=== PATIENT | female | born 1985 | race Hispanic/Latino ===

== ENCOUNTER 2018-01-22 12:16 | Emergency (ER) | payer OTHER ==
[2018-01-22 12:27] VITALS: O2SAT 100
[2018-01-22] MEDS ORDERED: Sodium Chloride 0.9% 1,000 ML IV STA (12:45)
[2018-01-22 13:17] LABS: BASO % 0.2 % (0.0-2.0); EOS % 0.2 % (0.0-4.0); HEMOGLOBIN 14.5 g/dL (12.0-16.0); LYMPH # 1.3 K/uL (1.0-4.3); LYMPH % 8.6 % (20.0-40.0); MEAN CELL VOLUME 89.7 fl (81.0-99.0); MEAN CORPUSCULAR HEMOGLOBIN 29.9 pg (27.0-31.0); MEAN CORPUSCULAR HGB CONC 33.3 g/dL (33.0-37.0); MEAN PLATELET VOLUME 8.8 fl (7.2-11.7); MONO # 0.5 K/uL (0.0-0.8); MONO % 3.4 % (0.0-10.0); NEUT # 12.8 K/uL (1.8-7.0); NEUT % 87.6 % (50.0-75.0); PLATELET COUNT 256 K/uL (130-400); RBC 4.87 Mil/uL (3.80-5.20); RED CELL DISTRIBUTION WIDTH 13.8 % (11.5-14.5); WHITE BLOOD COUNT 14.6 K/uL (4.8-10.8)
[2018-01-22 13:25] LABS: BLOOD UREA NITROGEN 14 mg/dl (7-17); GFR NON-AFRICAN AMERICAN > 60; LIPASE 89 U/L (23-300)
--- NOTE | 2018-01-22 13:36 | ED PDOC ---
HPI: Back Time Seen by Provider: 01/22/18 12:40 Chief Complaint (Nursing): Back Pain Chief Complaint (Provider): Left Flank Pain History Per: Patient History/Exam Limitations: no limitations Onset/Duration Of Symptoms: Hrs Current Symptoms Are (Timing): Still Present Quality Of Discomfort: "Pain" Additional Complaint(s): 32 year old female who is 5 months presents to the ER for left-side intermittent flank pain onset today. She states she is breast-feeding. Also reports the flank pain is associated with nausea and mild blood in urine. Denies fever, chills or dysuria. Past Medical History Reviewed: Historical Data, Nursing Documentation, Vital Signs Vital Signs: Last Vital Signs Temp 97.4 F L 01/22/18 12:24 Pulse 60 01/22/18 12:24 Resp 16 01/22/18 12:24 BP 125/80 01/22/18 12:24 Pulse Ox 100 01/22/18 12:24 - Medical History PMH: No Chronic Diseases - Surgical History Surgical History: - Family History Family History: States: Unknown Family Hx - Social History Current smoker - smoking cessation education provided: No Alcohol: None Drugs: Denies - Home Medications Home Medications: Ambulatory Orders Medication Instructions Recorded Cefuroxime Axetil [Cefuroxime] 500 mg PO BID #14 tablet 01/22/18 Ibuprofen [Motrin] 600 mg PO Q8 PRN #21 tab 01/22/18 Ondansetron ODT [Zofran ODT] 4 mg PO Q8 PRN #10 odt 01/22/18 oxyCODONE/Acetaminophen [Percocet 1 ea PO Q6 PRN #12 tab 01/22/18 5/325 mg Tab] - Allergies Allergies/Adverse Reactions: Allergies Allergy/AdvReac Type Severity Reaction Status Date / Time No Known Allergies Allergy Verified 01/22/18 12:24 Review of Systems ROS Statement: Except As Marked, All Systems Reviewed And Found Negative Constitutional: Negative for: Fever, Chills Gastrointestinal: Positive for: Nausea Genitourinary Female: Positive for: Hematuria. Negative for: Dysuria Musculoskeletal: Positive for: Back Pain Physical Exam - Reviewed Nursing Documentation Reviewed: Yes Vital Signs Reviewed: Yes - Physical Exam Appears: Positive for: Non-toxic, No Acute Distress Head Exam: Positive for: ATRAUMATIC, NORMAL INSPECTION, NORMOCEPHALIC Skin: Positive for: Normal Color, Warm, Dry Gastrointestinal/Abdominal: Negative for: Normal Exam (vomiting in ER) Back: Negative for: Normal Inspection (left flank pain) Neurologic/Psych: Positive for: Alert, Oriented (x3). Negative for: Motor/Sensory Deficits - Laboratory Results Result Diagrams: 01/22/18 13:00 01/22/18 13:50 Urine POC: Negative Urine dip results: Positive for: Blood - ECG O2 Sat by Pulse Oximetry: 100 (RA) Pulse Ox Interpretation: Normal - Progress ED Course And Treament: CT OF ABD/PELVIS: IMPRESSION: 1. A 5.8 mm calculus obstructs the distal left ureter a few cm proximal left ureteral junction region. No additional radiodense urolithiasis bilaterally. [id number] left hydroureteronephrosis results. No right hydronephrosis. 2. Otherwise nonacute unenhanced abdomen pelvis CT exam. NS 1 LITER WIDE OPEN TORADOL 15 MG IV ZOFRAN 4 MG IV MORPHINE 4 MG IV X 1 DOSE D/W DR. STAHL. ROCEPHIN 1 GM IV/KUB/ IN ED REQUESTED BY HIM WILL D/C WITH CEFITIN/FLOMAX/MOTRIN/PERCOCET. PATIENT REFUSED KUB AT THIS TIME. Medical Decision Making Medical Decision Making: Time: 1245 Initial Plan: Abdomen & Pelvis CT CMP Lipase ED Urine ED Urine Dipstick CBC w/ Differential Normal Saline 1000 mls/hr Toradol 15mg Zofran 4g Urine Culture Urinalysis Reevaluation Urine was negative. Urine Dipstick was positive for blood. Scribe Attestation: Documented by Maurice Coleman, acting as a scribe for Fabiano Chase PA-C Provider Scribe Attestation: All medical record entries made by the Scribe were at my direction and personally dictated by me. I have reviewed the chart and agree that the record accurately reflects my personal performance of the history, physical exam, medical decision making, and the department course for this patient. I have also personally directed, reviewed, and agree with the discharge instructions and disposition. Disposition - Clinical Impression Clinical Impression: Renal colic on left side - Patient ED Disposition Is Patient to be Admitted: No - Disposition Referrals: Alan Chew MD [Staff Provider] - Disposition: Routine/Home Disposition Time: 16:07 Condition: FAIR Prescriptions: Cefuroxime Axetil [Cefuroxime] 500 mg PO BID #14 tablet Ibuprofen [Motrin] 600 mg PO Q8 PRN #21 tab PRN Reason: Pain, Moderate (4-7) Ondansetron ODT [Zofran ODT] 4 mg PO Q8 PRN #10 odt PRN Reason: Nausea/Vomiting oxyCODONE/Acetaminophen [Percocet 5/325 mg Tab] 1 ea PO Q6 PRN #12 tab PRN Reason: Pain, Severe (8-10) Instructions: Renal Colic (DC)
[2018-01-22] MEDS ORDERED: Morphine 4 MG/ML VIAL ONE (14:14)
--- NOTE | 2018-01-22 14:15 | CT ---
Date of service: 01/22/2018 PROCEDURE: CT Abdomen and Pelvis without intravenous contrast HISTORY: r/o kidney stone left flank COMPARISON: None. TECHNIQUE: Helical CT of the abdomen and pelvis was performed without oral or intravenous contrast as per referring physician request. Coronal and sagittal reformats were generated. Contrast dose: None Radiation dose: Total exam DLP = 321.76 mGy-cm. This CT exam was performed using one or more of the following dose reduction techniques: Automated exposure control, adjustment of the mA and/or kV according to patient size, and/or use of iterative reconstruction technique. FINDINGS: LOWER THORAX: Unremarkable. LIVER: Unremarkable. No gross lesion or ductal dilatation. GALLBLADDER AND BILE DUCTS: Unremarkable. PANCREAS: Unremarkable. No gross lesion or ductal dilatation. SPLEEN: Unremarkable. ADRENALS: Unremarkable. No mass. KIDNEYS AND URETERS: There [id number] left hydroureteronephrosis caused by a 5.8 x 3.8 x 5.5 mm calculus obstructing the distal left ureter close to the region of the left ureter vessel junction but clearly not at the left UVJ [id number] perinephric and periureteral reactive changes are identified at the left with none on the right. No right hydronephrosis or radiodense urolithiasis. No radiodense intrarenal calculus left kidney. The urinary bladder is completely decompressed and unremarkable appearing. VASCULATURE: Unremarkable. No aortic aneurysm. No aortic atherosclerotic calcification or mural plaque present. BOWEL: Unremarkable. No obstruction. No gross mural thickening. APPENDIX: Not identified. PERITONEUM: Unremarkable. No free fluid. No free air. LYMPH NODES: Unremarkable. No enlarged lymph nodes. BLADDER: Please see kidneys and ureter section above. REPRODUCTIVE: Unremarkable. BONES: No acute fracture. OTHER FINDINGS: None. IMPRESSION: 1. A 5.8 mm calculus obstructs the distal left ureter a few cm proximal left ureteral junction region. No additional radiodense urolithiasis bilaterally. [id number] left hydroureteronephrosis results. No right hydronephrosis. 2. Otherwise nonacute unenhanced abdomen pelvis CT exam.
[2018-01-22 14:19] LABS: ALB/GLOB RATIO 1.3 (1.0-2.1); ALBUMIN 4.7 g/dL (3.5-5.0); ALT/SGPT 25 U/L (9-52); AST/SGOT 24 U/L (14-36)
[2018-01-22 14:19] LABS: BANDS 2 % (0-2); LYMPHOCYTE 12 % (20-50); MONOCYTE 3 % (0-10); NEUTROPHIL 83 % (42-75); PLATELET ESTIMATE NORMAL (NORMAL); TOTAL CELLS COUNTED 100
[2018-01-22] MEDS ORDERED: cefTRIAXone (Rocephin) 1 gm Inj IVPB ONE (15:12)
[2018-01-22 15:23] VITALS: RESP 18
[2018-01-22 15:29] LABS: SQUAMOUS EPITHIAL 2 /hpf (0-5); URINE BILIRUBIN NEGATIVE (NEGATIVE); URINE BLOOD MODERATE (NEGATIVE); URINE CLARITY SLIGHTY-CLOUDY (Clear); URINE COLOR YELLOW (YELLOW); URINE GLUCOSE (UA) NEG (Normal); URINE LEUKOCYTE ESTERASE NEG Leu/uL (Negative); URINE PROTEIN 30 mg/dL (NEGATIVE); URINE UROBILINOGEN 0.2-1.0 mg/dL (0.2-1.0)
[2018-01-22] MEDS ORDERED: cefTRIAXone (Rocephin) 250 mg Inj ONE (16:16)
[2018-01-22] MEDS ORDERED: Sterile Water 10 ML IV ONE (16:18)
[2018-01-22 17:18] VITALS: BP 119/62; PULSE 66; TEMP 98.5
== END 2018-01-22 17:14 | disposition home or self-care (01) ==
LOC: H.ER 12:16
DX: N23 Unspecified renal colic (principal)
CPT/HCPCS: 74176; 80053; 81003; 81025; 83690; 85025; 87086; 96361; 96374; 96375; 99283; J0696; J1885; J2270; J2405; J7030